=== PATIENT | male | born 1995 | race African-American/Black ===

== ENCOUNTER 2017-07-12 16:52 | Emergency (ER) | END 2017-07-12 19:58 | disposition home or self-care (01) ==

== ENCOUNTER 2018-08-31 12:25 | Emergency (ER) | payer SELFPAY | END 2018-08-31 14:19 | disposition left against medical advice (07) | LOC: E/R 12:25 | DX: Z53.21 Procedure and treatment not carried out due to patient leaving prior to being seen by health care provider (principal) ==